=== PATIENT | male | born 1955 | race Caucasian/White ===

== ENCOUNTER → 2021-08-29 | Outpatient (CLI) | payer MEDICARE ==
[~2021-08-29] MED LIST: MEDROL DOSEPAK 24 MG PO; NEURONTIN800 MG PO; OXYCONTIN30 MG PO; PREVACID30 MG PO
== END ==
LOC: HEART CORB 09:29
DX: R07.2 Precordial pain (principal); R06.02 Shortness of breath

== ENCOUNTER → 2021-09-01 | Outpatient (CLI) | payer MEDICARE | LOC: HEART CORB 08:45 | DX: R07.2 Precordial pain (principal); R06.02 Shortness of breath | CPT/HCPCS: 78452; A9502; J2785 ==